=== PATIENT | female | born 1985 | race Caucasian/White ===

== ENCOUNTER 2018-09-16 19:42 | Emergency (ER) | payer OTHER ==
[~2018-09-16] VITALS: Ht 154.9 cm; Wt 65.7 kg
[2018-09-16 19:48] VITALS: BP 118/57; PULSE 86; RESP 18; Ht 154.9 cm; Wt 65.7 kg
[2018-09-16] MEDS ORDERED: MECLIZINE 12.5 MG TAB PO ONE (23:30)
[2018-09-17] MEDS ORDERED: ONDA4TAB14 PO (01:10)
[2018-09-17] MEDS ORDERED: MECL-77 PO (01:11)
[2018-09-17] MEDS ORDERED: DEXAMETHASONE 10 MG/ML 1 ML INJ IM ONE (01:30)
--- NOTE | 2018-09-17 02:41 | ERD ---
ER Documentation Chief Complaint Chief Complaint states vertigo x 3 months. also c/o diarrhea HPI History of Present Illness: 32-year-old female who denies a past medical history coming in today with complaint of intermittent episodes of vertigo that is been present for 3 months. Patient reports that she feels like she is spinning. Patient reports when she is in the car she feels like the car is moving when it actually at a standstill. Patient reports these episodes usually last less than 1 minute. Patient reports the most recent episode today lasted approximately 1 hours so she decided to come to the emergency department. Associated symptoms during this episode includes nausea that is no longer present at this time. Patient also reports diarrhea that during episode but no presence at this time. At home pharmacological/nonpharmacological treatment for symptoms: Denies Denies social concerns; Denies recent foreign travel ROS All systems reviewed and are negative except as per history of present illness. Medications Home Meds Active Scripts Meclizine Hcl* (Meclizine Hcl*) 25 Mg Tablet, 25 MG PO Q8H PRN for DIZZINESS, #30 TAB Prov:AYDEN LAND NP 09/17/18 Ondansetron (Ondansetron Odt) 4 Mg Tab.rapdis, 4 MG PO Q6H PRN for NAUSEA AND/OR VOMITING, #10 TAB Prov:AYDEN LAND NP 09/17/18 Allergies Allergies: Coded Allergies: niacin (Verified Adverse Reaction, Unknown, redness, 09/16/18) PMhx/Soc Medical and Surgical Hx: pt denies Medical Hx, pt denies Surgical Hx Hx Alcohol Use: No Hx Substance Use: No Hx Tobacco Use: No Smoking Status: Never smoker FmHx Family History: No diabetes, No coronary disease Physical Exam Vitals Vital Signs Date Temp Pulse Resp B/P (MAP) Pulse Ox O2 O2 Flow FiO2 Time Delivery Rate 09/16/18 98.9 86 18 118/57 98 19:48 (77) Physical Exam Const: No acute distress, afebrile Head: Atraumatic Eyes: Normal Conjunctiva ENT: Normal External Ears, Nose and Mouth. Neck: Full range of motion. No meningismus. Resp: Clear to auscultation bilaterally Cardio: Regular rate and rhythm, no murmurs. Heart rate 70s Abd: Soft, non tender, non distended. No guarding, no masses, no rigidity Skin: No petechiae or rashes Back: No midline or flank tenderness Ext: No cyanosis, or edema Neur: Awake and alert x3, speaking in clear sentences, no focal deficits or facial asymmetry Psych: Normal Mood and Affect Result Diagram: 09/16/18 2322 09/16/18 2322 Results 24 hrs Laboratory Tests Test 09/16/18 22:43 09/16/18 23:22 09/16/18 23:23 POC Beta HCG, Qualitative NEGATIVE White Blood Count 6.0 10^3/ul Red Blood Count 4.76 10^6/ul Hemoglobin 13.5 g/dl Hematocrit 41.0 % Mean Corpuscular Volume 86.1 fl Mean Corpuscular Hemoglobin 28.4 pg Mean Corpuscular 32.9 g/dl Hemoglobin Concent Red Cell Distribution Width 12.7 % Platelet Count 246 10^3/UL Mean Platelet Volume 9.8 fl Immature Granulocytes % 0.000 % Neutrophils % 33.0 % Lymphocytes % 55.9 % Monocytes % 6.3 % Eosinophils % 3.8 % Basophils % 1.0 % Nucleated Red Blood Cells % 0.0 /100WBC Immature Granulocytes # 0.000 10^3/ul Neutrophils # 2.0 10^3/ul Lymphocytes # 3.4 10^3/ul Monocytes # 0.4 10^3/ul Eosinophils # 0.2 10^3/ul Basophils # 0.1 10^3/ul Nucleated Red Blood Cells # 0.0 10^3/ul Sodium Level 139 mmol/L Potassium Level 4.6 mmol/L Chloride Level 105 mmol/L Carbon Dioxide Level 25 mmol/L Anion Gap 9 Blood Urea Nitrogen 9 mg/dl Creatinine 0.76 mg/dl Est Glomerular Filtrat > 60 mL/min Rate mL/min Glucose Level 85 mg/dl Calcium Level 9.8 mg/dl Total Bilirubin 0.5 mg/dl Direct Bilirubin 0.00 mg/dl Indirect Bilirubin 0.5 mg/dl Aspartate Amino 25 IU/L Transf (AST/SGOT) Alanine 27 IU/L Aminotransferase (ALT/SGPT) Alkaline Phosphatase 28 IU/L Troponin I < 0.012 ng/ml Total Protein 7.2 g/dl Albumin 4.5 g/dl Globulin 2.70 g/dl Albumin/Globulin Ratio 1.66 Urine Color YELLOW Urine Clarity CLEAR Urine pH 5.0 Urine Specific [place] 1.019 Urine Ketones 1+ mg/dL Urine Nitrite NEGATIVE mg/dL Urine Bilirubin NEGATIVE mg/dL Urine Urobilinogen NEGATIVE mg/dL Urine Leukocyte Esterase NEGATIVE Jose R/ul Urine Hemoglobin NEGATIVE mg/dL Urine Glucose NEGATIVE mg/dL Urine Total Protein NEGATIVE mg/dl Current Medications Medications Dose Sig/Roderick Start Time Status Last (Trade) Ordered Route PRN Stop Time Admin Dose Reason Admin Meclizine 25 mg ONCE ONCE 09/16/18 DC 09/16/18 HCl PO 23:30 23:18 (Antivert) 09/16/18 23:31 8 mg ONCE ONCE 09/17/18 DC Dexamethasone IM 01:30 (Decadron) 09/17/18 01:31 Procedures/MDM ED course includes a thorough examination and history. Medications: Meclizine Imaging: EKG Labs: CBC, CMP, urinalysis, urine Low suspicion for life-threatening medical emergency. Suspicion for acute neurological emergency. Low suspicion for cardiac emergency. Otherwise healthy patient presenting with constellation of symptoms likely representing vertigo as characterized by history, physical exam findings. CBC: no e/o of systemic infection or severe anemia; increased lymphocytes. CMP: no e/o severe acidosis, alkalosis, renal failure, diabetic ketoacidosis, liver disease. Urinalysis is negative for infection or other abnormal findings, 1+ ketones. Urine negative. EKG at [address] Brambila: Rate/Rhythm: Sinus bradycardia rhythm with sinus arrhythmia, ventricular rate 57 QRS, ST, T-waves: No changes consistent w/ acute ischemia Impression: No evidence of ischemia or arrhythmia Patient reassessment 0110: Patient denies significant decrease in spinning feeling. Patient is speaking clear sentences with no new focal neurological deficits. Patient updated about findings of EKG warrants follow-up with PCP with possible cardiology referral. Patient hemodynamically stable. No respiratory distress, otherwise relatively well appearing and nontoxic. Disposition given. Patient educated on diagnoses, prescriptions, follow-up care, return precautions. Strict return precautions given for worsening condition; questions answered discharge. Patient verbalized understanding of discharge instructions, follow-up care, return precautions. Disposition for discharge with followup in 2 days with PCP/clinic. Departure Diagnosis: Primary Impression: Sinus arrhythmia seen on electrocardiography Additional Impressions: Sinus bradycardia by electrocardiogram Vertigo Condition: Stable Patient Instructions: Inner Ear Problems: Causes of Dizziness (Vertigo), Arrhythmia, Unspecified, Bradycardia, Vertigo, Unspecified Referrals: KISHORE GABRIEL MD (PCP) [facility] YOU HAVE RECEIVED A MEDICAL SCREENING EXAM AND THE RESULTS INDICATE THAT YOU DO NOT HAVE A CONDITION THAT REQUIRES URGENT TREATMENT IN THE EMERGENCY DEPARTMENT. FURTHER EVALUATION AND TREATMENT OF YOUR CONDITION CAN WAIT UNTIL YOU ARE SEEN IN YOUR DOCTORS OFFICE WITHIN THE NEXT 1-2 DAYS. IT IS YOUR RESPONSIBILITY TO MAKE AN APPOINTMENT FOR FOLOW-UP CARE. IF YOU HAVE A PRIMARY DOCTOR --you should call your primary doctor and schedule an appointment IF YOU DO NOT HAVE A PRIMARY DOCTOR YOU CAN CALL OUR PHYSICIAN REFERRAL HOTLINE AT IF YOU CAN NOT AFFORD TO SEE A PHYSICIAN YOU CAN CHOSE FROM THE FOLLOWING [facility] [address] [facility] [address] [facility] [facility] [address] [facility] [address] [facility] [address] [facility] [facility] [address] [facility] [facility] YOU HAVE RECEIVED A MEDICAL SCREENING EXAM AND THE RESULTS INDICATE THAT YOU DO NOT HAVE A CONDITION THAT REQUIRES URGENT TREATMENT IN THE EMERGENCY DEPARTMENT. FURTHER EVALUATION AND TREATMENT OF YOUR CONDITION CAN WAIT UNTIL YOU ARE SEEN IN YOUR DOCTORS OFFICE WITHIN THE NEXT 1-2 DAYS. IT IS YOUR RESPONSIBILITY TO MAKE AN APPOINTMENT FOR FOLOW-UP CARE. IF YOU HAVE A PRIMARY DOCTOR --you should call your primary doctor and schedule and appointment IF YOU DO NOT HAVE A PRIMARY DOCTOR YOU CAN CALL OUR PHYSICIAN REFERRAL HOTLINE AT . IF YOU CAN NOT AFFORD TO SEE A PHYSICIAN YOU CAN CHOSE FROM THE FOLLOWING COUNT INCLUDES THE [facility] INSTITUTIONS: [facility] [address] [place] [address] [facility] [address] [place] [address] [facility] [address] [place] [address] Additional Instructions: Thank you very much for allowing us to participate in your care. Your health and safety is our top priority at [facility]. It is important to read all discharge instructions and education provided in your discharge packet. *Your EKG showed your heart was beating at a lower than normal rate with a mild abnormality called an arrhythmia. Follow-up with your primary care doctor for reevaluation of this in for a possible referral to head filter tank tender helper if needed.* Call your primary care doctor TOMORROW for an appointment during the next 2-4 days and bring all the information and medications prescribed. Have prescriptions filled and follow precisely the directions on the label. -Zofran is a medication for nausea/vomitting; take this medication as needed for nausea/vomiting/decreased appetite. -Meclizine is a medication that will help decrease vertigo/spinning. Take this medication as prescribed as needed. If the symptoms get worse and your provider is unavailable, return to the Emergency Department immediately. AYDEN LAND NP Sep 17, 2018 02:41
== END 2018-09-17 01:31 | disposition home or self-care (01) ==
LOC: FTE 19:42
DX: I49.8 Other specified cardiac arrhythmias (principal); R11.0 Nausea
CPT/HCPCS: 80053; 81003; 81025; 84484; 85025; 93005; Z7502; Z7610

== ENCOUNTER 2018-12-16 19:29 | Emergency (ER) | payer OTHER ==
[~2018-12-16] VITALS: Ht 157.5 cm; Wt 65.0 kg
[~2018-12-16 19:29] MED LIST: IBUP-1542 PO; MECL-77 PO; ONDA4TAB14 PO
[2018-12-16 20:07] VITALS: Ht 157.5 cm; Wt 65.0 kg
[2018-12-16] MEDS ORDERED: LORAZEPAM 0.5 MG TAB PO ONE (21:30)
[2018-12-16 23:38] VITALS: BP 100/87; PULSE 66; RESP 16
== END 2018-12-17 01:16 | disposition home or self-care (01) ==
LOC: FTE 19:29
DX: R07.9 Chest pain, unspecified (principal); F41.9 Anxiety disorder, unspecified
CPT/HCPCS: 71045; 80048; 81025; 84484; 85025; 93005; Z7502; Z7610